=== PATIENT | female | born 1995 | race Caucasian/White ===

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

== ENCOUNTER 2017-04-16 22:37 | Emergency (ER) | payer BC, OTHER ==
[2017-04-17] MEDS ORDERED: AUGMENTIN 875 MG TAB As Ordered (00:04)
[2017-04-17] MEDS: IBUPROFEN 600 MG TAB PO (00:18)
[2017-04-17] MEDS: AUGMENTIN 875 MG TAB PO (00:19)
[2017-04-17] MEDS: AUGMENTIN 500 MG TAB PO (00:19)
== END 2017-04-17 00:31 | disposition home or self-care (01) ==
LOC: M ED 22:37
DX: S51.831A Puncture wound without foreign body of right forearm, initial encounter (principal); W54.0XXA Bitten by dog, initial encounter; Y92.099 Unspecified place in other non-institutional residence as the place of occurrence of the external cause; Y93.9 Activity, unspecified
CPT/HCPCS: 99282

== ENCOUNTER 2020-02-01 09:17 | Emergency (ER) | payer BC, OTHER ==
[~2020-02-01] VITALS: Ht 154.9 cm; Wt 67.6 kg
[~2020-02-01 09:17] MED LIST: AUGM500T34 PO; IBUP-1022 PO
[2020-02-01 10:04] LABS: BASO % 0.5 % (0.0-1.0); EOS # 0.1 10^3/uL (0.0-0.5); EOS % 1.4 % (0.0-3.0); HEMATOCRIT 46.8 % (36.0-47.0); HEMOGLOBIN 15.3 g/dl (12.0-15.5); LYMPH # 1.6 10^3/uL (1.5-5.0); LYMPH % 27.8 % (24.0-44.0); MEAN CORPUSCULAR HEMOGLOBIN 29.1 pg (27.0-33.0); MEAN CORPUSCULAR HGB CONC 32.7 g/dl (32.0-36.5); MONO # 0.3 10^3/uL (0.0-0.8); MONO % 5.9 % (0.0-5.0); NEUTROPHILS # 3.6 10^3/uL (1.5-8.5); NEUTROPHILS % 64.2 % (36.0-66.0); PLATELET COUNT, AUTOMATED 259 10^3/uL (150-450); RED BLOOD COUNT 5.26 10^6/uL (4.00-5.40); WHITE BLOOD COUNT 5.6 10^3/uL (4.0-10.0)
[2020-02-01 10:09] LABS: APPEARANCE, URINE HAZY (CLEAR); BACTERIA, URINE AUTO NEGATIVE (NEGATIVE); BILIRUBIN, URINE AUTO NEGATIVE (NEGATIVE); BLOOD, URINE BLOOD 2+ (NEGATIVE); COLOR, URINE YELLOW (YELLOW); GLUCOSE, URINE (UA) AUTO NEGATIVE (NEGATIVE); KETONE, URINE AUTO NEGATIVE (NEGATIVE); LEUKOCYTE ESTERASE, URINE AUTO NEGATIVE (NEGATIVE); MUCUS, URINE SMALL (NEGATIVE); NITRITE, URINE AUTO NEGATIVE (NEGATIVE); PROTEIN, URINE AUTO NEGATIVE (NEGATIVE); RBC, URINE AUTO 2 /HPF (0-3); SQUAMOUS EPITHELIAL CELL UR AU 11 /HPF (0-6); UROBILINOGEN, URINE AUTO 0.2 mg/dL (0.0-2.0); WBC, URINE AUTO 5 /HPF (0-3)
[2020-02-01 10:35] LABS: BLOOD UREA NITROGEN 15 MG/DL (7-18); CALCIUM LEVEL 9.5 MG/DL (8.5-10.1); CARBON DIOXIDE LEVEL 28 MEQ/L (21-32); CHLORIDE LEVEL 106 MEQ/L (98-107); CREATININE FOR GFR 0.92 MG/DL (0.55-1.30); GLOMERULAR FILTRATION RATE > 60.0 (>60); GLUCOSE, FASTING 84 MG/DL (70-100); HCG, SERUM QUANTITATIVE 3 MIU/ML; POTASSIUM SERUM 3.9 MEQ/L (3.5-5.1); SODIUM LEVEL 138 MEQ/L (136-145)
--- NOTE | 2020-02-01 10:51 | REP ---
INDICATION: VAGINAL BLEEDING. COMPARISON: None. TECHNIQUE: Transabdominal and transvaginal scanning. FINDINGS: Uterine dimensions are normal measured 0.9 x 3.5 x 4.6 cm. Endometrial echo is 0.8 cm thick. Uterus is empty. No intrauterine gestational sac is seen. No free fluid is noted. Right ovary has a normal appearance with dimensions of 3.0 x 1.5 x 1.9 cm. Left ovarian dimensions are 3.0 x 1.8 x 2.7 cm. There is a 2.9 by 1.7 x 2.1 cm cystic area in the left adnexa. Doppler flow is present in both ovaries. IMPRESSION: Nonspecific sonographic findings. Normal-sized empty uterus. No intrauterine gestational sac seen. There is a 2.9 cm cystic area in the left ovary. No free fluid. Clinical and possibly sonographic follow-up is advised. <Electronically signed by Gerry Villavicencio > 02/01/20 1045
[2020-02-01 11:21] VITALS: BP 113/75
== END 2020-02-01 11:33 | disposition home or self-care (01) ==
LOC: M ED 09:17
DX: O03.9 Complete or unspecified spontaneous abortion without complication (principal)

== ENCOUNTER → 2020-04-19 | Outpatient (REF) | payer OTHER ==
[2020-04-19 13:21] LABS: HEMATOCRIT 41.8 % (36.0-47.0); HEMOGLOBIN 13.7 g/dl (12.0-15.5); MEAN CORPUSCULAR HEMOGLOBIN 29.1 pg (27.0-33.0); MEAN CORPUSCULAR HGB CONC 32.8 g/dl (32.0-36.5); MEAN CORPUSCULAR VOLUME 88.7 fl (80.0-96.0); PLATELET COUNT, AUTOMATED 257 10^3/uL (150-450); RED BLOOD COUNT 4.71 10^6/uL (4.00-5.40); WHITE BLOOD COUNT 7.6 10^3/uL (4.0-10.0)
[2020-04-19 14:44] LABS: HCG, SERUM QUANTITATIVE 102500 MIU/ML; HEPATITIS C VIRUS ABY INDEX < 0.0 INDEX (<0.8); HIV 1&2 SCREEN CENTAUR NEGATIVE (NEGATIVE); PROGESTERONE 18.04 NG/ML
== END ==
LOC: M LAB REF 12:02
PROVIDERS: ATTEND Advanced Practice Midwife
DX: O36.80X0 Pregnancy with inconclusive fetal viability, not applicable or unspecified (principal)

== ENCOUNTER → 2020-04-26 | Outpatient (CLI) | payer BC, OTHER ==
--- NOTE | 2020-04-26 10:35 | REP ---
INDICATION: PREG DATING VIABILITY COMPARISON: None TECHNIQUE: Transabdominal 1st trimester obstetrical ultrasound with color Doppler evaluation. FINDINGS: Single live early intrauterine is appreciated. Gestational sac with yolk sac and pole identified. Olds-rump length of 18 mm corresponds to 8 weeks 2 days gestational age with estimated date of delivery 12/04/2020. heart rate equals 175 beats per minute. No gross abnormalities are identified. Bilateral ovaries are normal in vascularity without evidence for torsion. Left maternal ovary includes 2.5 x 1.7 x 1.9 cm presumed corpus luteum cyst. IMPRESSION: Single live early intrauterine at 8 weeks 2 days gestational age. Complete anatomical assessment should be performed and 19-20 weeks. <Electronically signed by Gildardo Morrison > 04/26/20 1034
== END ==
LOC: M RAD 09:37
PROVIDERS: ATTEND Advanced Practice Midwife
DX: O36.80X0 Pregnancy with inconclusive fetal viability, not applicable or unspecified (principal)

== ENCOUNTER → 2020-09-01 | Outpatient (CLI) | payer BC, OTHER ==
[2020-09-01 14:28] LABS: HEMATOCRIT 38.2 % (36.0-47.0); HEMOGLOBIN 12.5 g/dl (12.0-15.5); MEAN CORPUSCULAR HEMOGLOBIN 30.2 pg (27.0-33.0); MEAN CORPUSCULAR HGB CONC 32.7 g/dl (32.0-36.5); MEAN CORPUSCULAR VOLUME 92.3 fl (80.0-96.0); PLATELET COUNT, AUTOMATED 187 10^3/uL (150-450); RED BLOOD COUNT 4.14 10^6/uL (4.00-5.40); WHITE BLOOD COUNT 8.7 10^3/uL (4.0-10.0)
== END ==
LOC: M LAB 12:11
PROVIDERS: ATTEND Advanced Practice Midwife
DX: Z34.82 Encounter for supervision of other normal pregnancy, second trimester (principal)

== ENCOUNTER → 2020-11-02 | Outpatient (REF) | payer BC, OTHER | LOC: M LAB REF 16:41 | PROVIDERS: ATTEND Obstetrics & Gynecology | DX: Z34.03 Encounter for supervision of normal first pregnancy, third trimester (principal) ==